=== PATIENT | male | born 1990 | race Hispanic/Latino ===

== ENCOUNTER 2022-10-20 19:48 | Emergency (ER) | payer OTHER, SELFPAY ==
[2022-10-20 20:03] VITALS: BP 159/101; PULSE 98; RESP 20; TEMP 36.7; O2SAT 98; BMI 36.0
--- NOTE | 2022-10-20 20:07 | DI.RAD.S_ITS ---
PROCEDURE: XR ANKLE RT MIN 3V INDICATIONS: right ankle injury TECHNIQUE: 3 views of the ankle were acquired. COMPARISON: None. FINDINGS: Bones: No fractures or dislocations. Ankle mortise is normally aligned. No suspicious bony lesions. Soft tissues: There is mild periarticular soft tissue swelling anterolaterally. There is a small tibiotalar joint effusion. Achilles tendon appears normal. IMPRESSION: 1. No fracture or dislocation. Dictated by: Fox Nunes M.D. on 10/20/2022 at 20:39 Approved by: Fox Nunes M.D. on 10/20/2022 at 20:41
--- NOTE | 2022-10-20 21:52 | ED.LOWEXIN ---
HPI - Extremity Injury (Lower) General Chief Complaint: Extremity Injury, Lower Stated Complaint: rt ankle injury Time Seen by Provider: 10/20/22 21:52 Source: patient Mode of arrival: Ambulatory History of Present Illness HPI Narrative: Patient is a 32-year-old healthy male who presents with right ankle pain and injury. He states that he was running today when he felt it twist. He initially was ambulatory on it now hurts quite a bit. He feels like his knee maybe hurts a little bit but it did not initially. He is significant lateral swelling. No other injuries. [place] was instructed to come to the ED for evaluation. Review of Systems Review of Systems ROS Unobtainable: All systems reviewed & are unremarkable except as noted in HPI and below Patient History tobacco type: smokeless tobacco alcohol intake frequency: holidays/special occasions only Substance Use Type: does not use Exam Initial Vital Signs Initial Vital Signs: Vital Signs Temperature 98.1 F 10/20/22 20:03 Pulse Rate 98 H 10/20/22 20:03 Respiratory Rate 20 10/20/22 20:03 Blood Pressure 159/101 H 10/20/22 20:03 Pulse Oximetry 98 10/20/22 20:03 Oxygen Delivery Method 10/20/22 20:03 GENERAL: Well-appearing, well-nourished and in no acute distress. CARDIOVASCULAR: peripheral pulses in tact, cap refill <2 sec RESPIRATORY: No respiratory distress, speaks in full sentences without difficulty EXTREMITIES: Swelling mostly lateral malleoli distal pedal pulse intact Achilles tendon intact nontender foot NEUROLOGICAL: Cranial nerves II through XII grossly intact. Normal gait and speech. SKIN: Warm, dry, no petechiae, no rashes or lesions. Course Orders Ordered: ED Orders 10/20/22 20:07 XR ankle RT min 3V Stat Vital Signs Vital signs: Vital Signs - 8 hr 10/20/22 20:03 10/20/22 22:09 Temperature 98.1 F Pulse Rate 98 H 86 Respiratory Rate 20 18 Blood Pressure 159/101 H 146/100 H Pulse Oximetry 98 97 Oxygen Delivery Method Room Air Room Air MDM - Extremity Injury (Lower) Imaging Data Extremity x-ray #1: Radiologist's Impression: Signed Patient: Donnie Gaines MR#: [id number] : 1990 Acct:[id number] Age/Sex: 32 / M Date of Service: 10/20/22 Loc: ED Accession Number: [id number] ?? Procedure: XR ankle RT min 3V Ordering Provider: Tasneem Denise D.O. PROCEDURE:? XR ANKLE RT MIN 3V ? INDICATIONS:? right ankle injury ? TECHNIQUE:? 3 views of the ankle were acquired.? ? COMPARISON:? None. ? FINDINGS:? ? Bones:? No fractures or dislocations.? Ankle mortise is normally aligned.? No suspicious bony lesions.? ? Soft tissues:? There is mild periarticular soft tissue swelling anterolaterally.? There is a small tibiotalar joint effusion.? Achilles tendon appears normal.? ? ? IMPRESSION:? ? 1. No fracture or dislocation. ? Dictated by: Fox Nunes M.D. on 10/20/2022 at 20:39 ? ? MDM Narrative Medical decision making narrative: Healthy 32-year-old male who presents after injury to his ankle. He is ambulatory x-ray is negative for fracture. He is offered crutches but declines at this time. Supportive care only with rest and ice. He requests work note today. Discharge Plan Departure Patient Disposition: Home Clinical Impression: Ankle sprain Instructions: Ankle Sprain Activity Restrictions/Additional Instructions: *You have been diagnosed with right ankle sprain *What to do: At this time there is no fracture. Increase activity as tolerated elevate and ice This can take up to 6 weeks to heal. If it hurts do not do it *Continue to take medications as directed Ibuprofen 600 mg every 6 hours for [id number] *Follow up with your primary care provider in 2-3 days or call [phone] *Return to ER if you should have increasing pain numbness tingling weakness [or] any new, worsening or concerning symptoms Referrals: ProviderFabiana [Primary Care Provider] - Stand Alone Forms: Patient Portal/API, Work Release Note
[2022-10-20 22:09] VITALS: BP 146/100; PULSE 86; RESP 18; O2SAT 97
== END 2022-10-20 22:10 | disposition home or self-care (01) ==
PROVIDERS: Emergency Provider Emergency Medicine
DX: S93.401A Sprain of unspecified ligament of right ankle, initial encounter (principal); X50.1XXA Overexertion from prolonged static or awkward postures, initial encounter
CPT/HCPCS: 73610; 99283